=== PATIENT | female | born 1925 | race Caucasian/White ===

== ENCOUNTER 2017-10-10 13:40 | Inpatient (IN) | payer OTHER ==
[~2017-10-10] VITALS: Ht 160 cm; Wt 70.3 kg
--- NOTE | ~2017-10-10 | EKG ---
[address] [place] [address] ELECTROCARDIOGRAM REPORT Name: ELISEO KENNEDY Room #: 170-12 ADM IN [facility].#: [id number] Admission: 10/10/17 Attend Phys: Joaquín Osborn MD Discharge: Date of : [birth year] Report #: [id number] THIS REPORT FOR: //name// [facility] ED Test Date: 2017-10-10 Test Time: 14:00:44 Pat Name: ELISEO KENNEDY Department: Room: Gender: F Senior Lead Java Developer: JESUS ALBERTO : 1925 Requested By: Tristian Fuentes Order Number: [id number] MD: Hugh Ivory Measurements Intervals [place] Rate: 70 P: [place]: 212 QRS: -67 QRSD: 146 T: 40 QT: 473 QTc: 511 Interpretive Statements Atrial-paced rhythm RBBB and LAFB Left ventricular hypertrophy Compared to ECG 11/19/2012 17:41:24 Sinus rhythm with atrial pacing is now present Atrial fibrillation no longer present Electronically Signed On 10-10-2017 16:42:32 CDT by Hugh Ivory [email or web address] <ELECTRONICALLY SIGNED> By: Hugh Ivory MD, [facility] 10/10/17 1642 1400 1400 Hugh Ivory MD, [facility] /EPI
[~2017-10-10 13:40] MED LIST: ADULT LOW DOSE81 MG PO; ALLOPURINOL 10100 M1 PO; ALLOPURINOL PO; AVELOX 400 MG400 MG PO; BENICAR; BENICAR HCT 201 EACH PO; BENICAR HCT 401 EAC1 PO; CARVEDILOL12.5 MG PO; CELEXA 20 MG TA20 M1 PO; COLACE 100 MG100 MG PO; COUMADIN 5 MG TA5 M1; COUMADIN 5 MG TA5 M1 PO; COUMADIN7.5 MG PO; DILTIAZEM 24HR240 MG PO; HYDRALAZINE 10M10 MG PO; JANUMET; JANUVIA100 MG PO; K-DUR 20 MEQ T20 MEQ PO; KLOR-CON 1010 MEQ; LASIX 40 MG TAB40 M1 PO; LATANOPROST 0.2.5 ML OPHTHALMIC; LEXAPRO PO; METOLAZONE 2.52.5 M1; NORCO 5-325 TA1 EACH PO; OPTIVE EYE DROP30 ML OP; PRESERVISION S1 EACH PO; PREVACID15 MG PO; PROAIR HFA8.5 GM INH; SYMBICORT160 MCG/4. INH; VENTOLIN17 GM INH; VESICARE 5 MG TA5 MG PO; VIBRAMYCIN100 MG PO; VYTORIN 10-101 EACH; VYTORIN 10-401 EACH PO; WARFARIN; [UNRECOGNIZED DRUG - OTHER]
[2017-10-10 13:54] VITALS: BP 153/49
[2017-10-10 14:12] LABS: HEMATOCRIT 39.4 % (37.0-47.0); HEMOGLOBIN 12.7 gm/dL (12.0-15.0); MCH 28.4 pg (26.0-34.0); MCHC 32.2 g/dL (28.0-37.0); MCV 88.2 fL (80.0-100.0); RBC 4.47 mil/uL (4.20-5.00)
[2017-10-10 14:19] LABS: ANION GAP 9 mmol/L (7-16); BUN 36 mg/dL (7-18); CALCIUM 9.5 mg/dL (8.5-10.1); CHLORIDE 105 mmol/L (98-107); CO2 28 mmol/L (21-32); CREATININE 2.2 mg/dL (0.6-1.0); GLUCOSE 101 mg/dL (74-106); POTASSIUM 3.9 mmol/L (3.5-5.1); SODIUM 142 mmol/L (136-145)
[2017-10-10 14:22] LABS: APTT 26.8 Seconds (24.5-32.8)
[2017-10-10 14:28] LABS: TROPONIN-I < 0.04 ng/mL (<0.06)
[2017-10-10 15:22] LABS: URINE BILIRUBIN NEGATIVE (Negative); URINE BLOOD 3+ (Negative); URINE CLARITY SL CLOUDY; URINE COLOR YELLOW; URINE GLUCOSE-RANDOM* NEGATIVE (Negative); URINE KETONES TRACE (Negative); URINE LEUKOCYTES 3+ (Negative); URINE NITRITE POSITIVE (Negative); URINE PROTEIN (DIPSTICK) 1+ (Negative); URINE SPECIFIC GRAVITY 1.025 (1.005-1.035); URINE UROBILINOGEN 0.2 E.U./dl (0.2-1.0)
[2017-10-10 15:35] LABS: CASTS None Seen /LPF (None Seen); CRYSTALS None Seen /LPF (None Seen); SQUAMOUS 0-3 Few /LPF (0-3); URINE WBC >25 Many /HPF (0-5)
[2017-10-10 15:36] LABS: URINE RBC 3-10 Few /HPF (0-2)
[2017-10-10 16:27] VITALS: BP 160/59
[2017-10-10 16:46] LABS: TSH 2.282 uIU/mL (0.358-3.740)
[2017-10-10] MEDS ORDERED: ELIQUIS5 MG (18:28)
[2017-10-10 18:49] VITALS: BP 172/84
[2017-10-10 19:50] VITALS: BP 177/56
[2017-10-11 04:20] VITALS: BP 202/83
[2017-10-11 05:04] VITALS: BP 203/75
[2017-10-11 06:38] LABS: ABSOLUTE NEUTROPHILS 4.3 thou/uL (1.4-8.2); BASOPHILS 0.9 % (0.0-2.0); HEMATOCRIT 32.4 % (37.0-47.0); HEMOGLOBIN 10.8 gm/dL (12.0-15.0); LYMPHOCYTES 17.9 % (24.0-44.0); MCH 29.2 pg (26.0-34.0); MCHC 33.3 g/dL (28.0-37.0); MCV 87.6 fL (80.0-100.0); MONOCYTES 11.1 % (1.0-8.0); PLATELET COUNT 218 thou/uL (150-400); POLYS 63.1 % (36.0-66.0); RDW 15.6 % (10.5-14.5); WBC 6.9 thou/uL (4.0-11.0)
[2017-10-11 06:50] LABS: CALCIUM 8.5 mg/dL (8.5-10.1); CREATININE 1.9 mg/dL (0.6-1.0); MAGNESIUM 2.1 mg/dL (1.8-2.4); POTASSIUM 4.4 mmol/L (3.5-5.1)
[2017-10-11 08:00] VITALS: BP 167/72
[2017-10-11 16:39] VITALS: BP 149/60
[2017-10-11 19:45] VITALS: BP 163/61
[2017-10-12 04:47] VITALS: BP 173/65
[2017-10-12 04:58] LABS: ABSOLUTE NEUTROPHILS 5.5 thou/uL (1.4-8.2); BASOPHILS 0.8 % (0.0-2.0); HEMATOCRIT 32.6 % (37.0-47.0); HEMOGLOBIN 10.8 gm/dL (12.0-15.0); LYMPHOCYTES 13.5 % (24.0-44.0); MCH 28.8 pg (26.0-34.0); MCHC 33.1 g/dL (28.0-37.0); MCV 87.1 fL (80.0-100.0); MONOCYTES 11.2 % (1.0-8.0); PLATELET COUNT 231 thou/uL (150-400); POLYS 68.5 % (36.0-66.0); RBC 3.74 mil/uL (4.20-5.00); RDW 16.2 % (10.5-14.5)
[2017-10-12 05:07] LABS: POTASSIUM 4.2 mmol/L (3.5-5.1)
[2017-10-12 07:30] VITALS: BP 176/52
[2017-10-12] MEDS ORDERED: KEFLEX500 M1 PO (15:19)
[2017-10-12 15:44] VITALS: BP 176/82
[2017-10-18] MEDS ORDERED: ELIQUIS2.5 MG PO (12:25)
== END 2017-10-12 16:24 | disposition home or self-care (01) | DRG 682 ==
LOC: ER 13:40 → 4W 15:42 → EROBS 15:42 → 4W 17:18
PROVIDERS: Emergency Medicine; Hospitalist; Nurse Practitioner; Physician Assistant
DX: N17.9 Acute kidney failure, unspecified (principal); E43 Unspecified severe protein-calorie malnutrition; N39.0 Urinary tract infection, site not specified; G45.9 Transient cerebral ischemic attack, unspecified; M10.9 Gout, unspecified; I48.91 Unspecified atrial fibrillation; J44.9 Chronic obstructive pulmonary disease, unspecified; E11.22 Type 2 diabetes mellitus with diabetic chronic kidney disease; E86.0 Dehydration; N18.9 Chronic kidney disease, unspecified; F32.9 Major depressive disorder, single episode, unspecified; F41.9 Anxiety disorder, unspecified; E78.5 Hyperlipidemia, unspecified; I12.9 Hypertensive chronic kidney disease with stage 1 through stage 4 chronic kidney disease, or unspecified chronic kidney disease; Z60.2 Problems related to living alone; I16.0 Hypertensive urgency; Z96.653 Presence of artificial knee joint, bilateral; J45.909 Unspecified asthma, uncomplicated; Z90.710 Acquired absence of both cervix and uterus; Z98.49 Cataract extraction status, unspecified eye; Z88.0 Allergy status to penicillin; Z88.2 Allergy status to sulfonamides; Z88.8 Allergy status to other drugs, medicaments and biological substances; Z91.040 Latex allergy status; Z95.0 Presence of cardiac pacemaker; Z79.01 Long term (current) use of anticoagulants; Z79.899 Other long term (current) drug therapy; Z87.891 Personal history of nicotine dependence
CPT/HCPCS: 10045